=== PATIENT | male | born 1995 | race Caucasian/White ===

== ENCOUNTER → 2018-11-18 09:55 | Outpatient (CLI) | payer MEDICAID ==
[2015-07-10 13:31] VITALS: BMI 28.3
[~2018-11-18 09:55] MED LIST: COLACE100 MG PO; LAMICTAL150 MG PO; SYNTHROID25 MCG PO
== END | disposition home or self-care (01) ==
LOC: D.MRI 09:55
DX: M25.512 Pain in left shoulder (principal)

== ENCOUNTER → 2018-12-10 08:21 | Outpatient (CLI) | payer MEDICAID ==
[2015-07-10 13:31] VITALS: BMI 28.3
[~2018-12-10 08:21] MED LIST changes: +KEPPRA1000 MG PO
== END | disposition home or self-care (01) ==
LOC: D.CT 08:21
DX: S42.292A Other displaced fracture of upper end of left humerus, initial encounter for closed fracture (principal); X58.XXXA Exposure to other specified factors, initial encounter

== ENCOUNTER 2018-12-26 20:53 | Emergency (ER) | payer MEDICAID ==
[~2018-12-26] VITALS: Ht 190.5 cm; Wt 100.0 kg
[~2018-12-26 20:53] MED LIST changes: -KEPPRA1000 MG PO
[2018-12-26 21:05] VITALS: Ht 190.5 cm; Wt 100.0 kg
[2018-12-26] MEDS ORDERED: KEPPRA1000 MG PO (21:06)
[2018-12-26 23:42] LABS: HEMATOCRIT 48.6 % (42.0-54.0); HEMOGLOBIN 17.4 g/dL (13.5-17.5); LYMPHOCYTES 32.7 % (15-50); MCH 31.1 pg (26.0-34.0); MCHC 35.8 g/dL (31.0-37.0); MCV 86.9 fL (80.0-100.0); MEAN PLATELET VOLUME 10.4 fL (7.4-10.4); NEUTROPHILS 62.7 % (40-80); RBC 5.59 10x6/uL (4.20-6.10); RDW 12.6 % (11.5-14.5); WBC 8.9 10x3/uL (4.8-10.8)
[2018-12-26 23:43] LABS: PLATELET COUNT 158 10x3/uL (130-400)
[2018-12-27 00:03] LABS: ALBUMIN 3.8 g/dL (3.4-5.0); ALKALINE PHOSPHATASE 152 U/L (46-116); ALT (SGPT) 20 U/L (10-68); BILIRUBIN - TOTAL 0.36 mg/dL (0.2-1.3); CALC OSMOLALITY 277 mosm/kg (275-300); CALCIUM 8.7 mg/dL (8.5-10.1); CARBON DIOXIDE 27.1 mmol/L (21.0-32.0); CHLORIDE - SERUM 104 mmol/L (98-107); CREATININE - SERUM 0.9 mg/dL (0.6-1.3); GLUCOSE 100 mg/dL (74-106); POTASSIUM - SERUM 3.9 mmol/L (3.5-5.1); PROTEIN - SERUM 7.3 g/dL (6.4-8.2); SODIUM 140 mmol/L (136-145); UREA NITROGEN 11 mg/dL (7-18); eGFR NON AFRICAN AMERICAN > 90 mL/min (90-120)
[2018-12-27 03:45] VITALS: BP 114/60
== END 2018-12-27 03:08 | disposition home or self-care (01) ==
LOC: D.ER 20:53
PROVIDERS: Family Medicine
DX: S43.005A Unspecified dislocation of left shoulder joint, initial encounter (principal); X58.XXXA Exposure to other specified factors, initial encounter; Y93.89 Activity, other specified; Y92.019 Unspecified place in single-family (private) house as the place of occurrence of the external cause; F17.200 Nicotine dependence, unspecified, uncomplicated

== ENCOUNTER 2019-03-12 19:42 | Emergency (ER) | payer MEDICAID ==
[~2019-03-12] VITALS: Ht 190.5 cm; Wt 102.3 kg
[~2019-03-12 19:42] MED LIST changes: +KEPPRA1000 MG PO
[2019-03-12 19:47] VITALS: Ht 190.5 cm; Wt 102.3 kg
[2019-03-12 21:27] LABS: BASOPHILS 0.3 % (0-2); EOSINOPHILS 1.7 % (0-7); HEMATOCRIT 42.3 % (42.0-54.0); IMMATURE GRANULOCYTES 0.3 % (0-5); LYMPHOCYTES 37.4 % (15-50); MCH 31.1 pg (26.0-34.0); MCHC 35.5 g/dL (31.0-37.0); MCV 87.6 fL (80.0-100.0); MEAN PLATELET VOLUME 11.1 fL (7.4-10.4); MONOCYTES 8.4 % (2-11); NEUTROPHILS 51.9 % (40-80); PLATELET COUNT 142 10x3/uL (130-400); RBC 4.83 10x6/uL (4.20-6.10); RDW 12.9 % (11.5-14.5); WBC 7.2 10x3/uL (4.8-10.8)
[2019-03-12 21:50] LABS: ALBUMIN 3.7 g/dL (3.4-5.0); ALKALINE PHOSPHATASE 145 U/L (46-116); ALT (SGPT) 15 U/L (10-68); BILIRUBIN - TOTAL 0.29 mg/dL (0.2-1.3); CALC OSMOLALITY 278 mosm/kg (275-300); CARBON DIOXIDE 21.5 mmol/L (21.0-32.0); CHLORIDE - SERUM 105 mmol/L (98-107); GLUCOSE 112 mg/dL (74-106); POTASSIUM - SERUM 3.9 mmol/L (3.5-5.1); PROTEIN - SERUM 7.1 g/dL (6.4-8.2); SODIUM 138 mmol/L (136-145); UREA NITROGEN 19 mg/dL (7-18); eGFR NON AFRICAN AMERICAN > 90 mL/min (90-120)
[2019-03-12] MEDS ORDERED: HYDROCODON-ACE1 EAC2 PO (22:19)
[2019-03-12 22:45] VITALS: BP 114/66
== END 2019-03-12 22:45 | disposition home or self-care (01) ==
LOC: D.ER 19:42
PROVIDERS: Family Medicine
DX: S43.005A Unspecified dislocation of left shoulder joint, initial encounter (principal); X58.XXXA Exposure to other specified factors, initial encounter; Y93.89 Activity, other specified; Y92.89 Other specified places as the place of occurrence of the external cause

== ENCOUNTER 2019-03-24 05:25 | Day surgery (SDC) | payer MEDICAID ==
[~2019-03-24 05:25] MED LIST changes: +HYDROCODON-ACE1 EAC2 PO; -LAMICTAL150 MG PO; +LAMICTAL200 M1 PO
[2019-03-24 06:30] VITALS: BP 118/65; BMI 29.7
[2019-03-24] MEDS ORDERED: DILAUDID4 MG PO (10:44)
--- NOTE | 2019-03-24 11:50 | NUR ---
CALL PLACED TO DR PIÑA REGARDING PATIENT'S COMPLAINT OF PAIN RATED AT 8 ON 0-10 SCALE TO LEFT SHOULDER. UGCCI KEANE CHARGE GANG WEIGHER COMES TO PATIENT'S ROOM TO ASSESS PATIENT'S PAIN
--- NOTE | 2019-03-24 12:40 | NUR ---
PATIENT STATES HE WISHES TO GO HOME, STATES PAIN HAS IMPROVED AND PAIN IS BEARABLE. PIV DC'D WITH TIP INTACT. DISCHARGE INSTRUCTIONS REVIEWED WITH PATIENT AND FAMILY. 1250 DISCHARGED HOME VIA WHEELCHAIR TO PRIVATE VEHICLE
[2019-03-25] MEDS ORDERED: PERCOCET 10-321 EAC1 PO (10:27)
--- NOTE | 2019-03-28 07:51 | OP ---
PATIENT NAME: CARMELITA BURGOS MEDICAL RECORD: [id number] :97 LOCATION:[facility] ADMISSION DATE: SURGEON: LILI PACE MD DATE OF OPERATION: 03/24/2019 PREOPERATIVE DIAGNOSES: 1. 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 2. 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 POSTOPERATIVE DIAGNOSES: 1. 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 2. 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 PROCEDURES: 1. Glenohumeral transplant. 2. Fresh allograft reconstruction of the humeral head approximately 30 cm in volume. 3. Fresh osteochondral allograft to the glenoid approximately 20 cm in volume. SURGEON: Lili Pace MD ANESTHESIA: General. INTRAOPERATIVE COMPLICATIONS: None. INDICATIONS: Carmelita Burgos is a 24-year-old gentleman who had previous shoulder reconstruction arthroscopically. Unfortunately, this failed as the patient had redeveloped his seizures. He is now 18 months seizure free. Preoperative CT scan showed that approximately the posterior half of the humeral head was void as well as the anterior 1/3 plus of the glenoid. The patient has failed arthroscopically and with the bony deficits noted. He was placed on the transplant list for fresh human transplant. Transplant became available. The patient was called in and the above surgery was performed. This was done completely open. OPERATIVE SUMMARY IN DETAIL: After obtaining the appropriate preoperative orthopedic consents as well as anesthetic consultation, evaluation and clearance, the patient was placed on the operating table in supine position. After general laryngeal mask airway was administered, the patient was placed in beach chair position. All pressure points were well padded. He was held firmly to the operating table using the vacuum pack suction system. The patient's left upper extremity and shoulder were then prepped and draped in routine sterile fashion. The arm was held in the Trimano arm holding device. Prior to incision, the patient's blood was drawn for fresh platelet rich plasma to be used into the case. The grafts were then opened to the back field. These are fresh human tissue grafts not frozen. Deltopectoral incision was created, taken down the level of the cephalic vein was identified and protected throughout the case. Deltoid was retracted over the humeral head using the brown retractor. Conjoined tendon was then identified. Clavipectoral fascia was incised. Conjoined tendon was gently retracted anteriorly. The subscapularis was removed in a peel-type fashion and retracted. At this point, the large glenoid deficit was noted. The humeral head was then dislocated into the incision. Intraoperative photos were taken of the large posterior deficit. The [facility] OPERATIVE REPORT [id number] CARMELITA BURGOS GINETTE lesion was then treated with cleanup cuts using a safety saw. The cleanup cuts were then measured in 3 dimension. The femoral head taken from the donor was then placed into the Arthrex graft base. It was held firmly while the appropriate measurements were drawn. Cuts were made to replace the posterior aspect of the humeral head done with a freehand technique. After the humeral head was cut, it was put into place. Several further small cuts were made for fine manipulation. This was then put into place and thought to be adequate. It was then soaked in PRP for approximately 10 minutes, bone graft was taken from the residual graft of the femoral head also soaked in PRP, packed into the open deficit and then the bone graft was then held in place and screwed in place using Acutrak compression screws that were placed subchondrally. This resulted in excellent spiritism of the humeral head volume. Having completed this, the humeral head was relocated and then retracted using the Fukuda retractor for good visualization of the anterior aspect of the glenoid. The anterior aspect of the glenoid was then cleared of all soft tissue. Previously placed suture anchors were also removed and then the anterior aspect of the glenoid as well as glenoid neck was prepared for graft. The tibial allograft was then placed into the Arthrex manipulation base and held firmly. Again, the planned cuts were drawn out and cut freehand. Having completed the cut for the anterior glenoid fresh allograft, it was put into place. Further small cuts were made for precision fit. The graft was then held into place and the K-wires for the cannulated Acutrak screws, 2.5 were then placed. Once it was felt that it was in the appropriate place screws were put into place. A small cut was made to trim up the bottom of the allograft of the glenoid. Again, intraoperative photos were taken. The wound was copiously irrigated this in multiple points. At this point, I did not feel like I needed to do a capsular advancement given to the fact that the entire glenoid was restored as well as the entire humeral head was restored. Subscapularis and capsule were then reapproximated back to the lesser tuberosity. A biceps tenotomy had been performed. This was thusly tenodesed into the closure. Please note that both grafts were soaked copiously in PRP. Upon closing the deltopectoral interval, the residual PRP was placed into the entire incision. The incision was closed finally with #1 Vicryl, 2-0 Vicryl, and skin lui. Sterile dressings were applied. The patient was awakened, taken to recovery room in stable condition. All final needle and sponge counts were correct. TRANSINT:[id number] Voice Confirmation ID: [id number] DOCUMENT ID: [id number] SANJEEV ZARATE, LILI DIA at 0751 CC: [id number] DICTATION DATE: 03/25/19 1309 [employer]: 03/25/192053 [facility] 03/24/19 [id number] [place] [address]
== END 2019-03-24 12:50 | disposition home or self-care (01) ==
LOC: D.OPS 05:25 → D.PAN 12:45 → D.OPS 12:45
PROVIDERS: ATTEND Orthopaedic Surgery
DX: M25.312 Other instability, left shoulder (principal); S43.005A Unspecified dislocation of left shoulder joint, initial encounter; X58.XXXA Exposure to other specified factors, initial encounter; Z01.812 Encounter for preprocedural laboratory examination

== ENCOUNTER 2019-03-25 09:22 | Emergency (ER) | payer MEDICAID ==
[~2019-03-25] VITALS: Ht 185.4 cm; Wt 102.3 kg
[~2019-03-25 09:22] MED LIST changes: +DILAUDID4 MG PO
[2019-03-25 09:32] VITALS: Ht 185.4 cm; Wt 102.3 kg
[2019-03-25] MEDS ORDERED: PERCOCET 10-321 EAC1 PO (10:27)
[2019-03-25 11:27] VITALS: BP 141/86
== END 2019-03-25 11:28 | disposition home or self-care (01) ==
LOC: D.ER 09:22
DX: G89.18 Other acute postprocedural pain (principal)

== ENCOUNTER → 2019-04-28 11:57 | Outpatient (CLI) | payer MEDICAID ==
[2019-03-25 09:32] VITALS: BMI 29.7
[~2019-04-28 11:57] MED LIST changes: +PERCOCET 10-321 EAC1 PO
== END | disposition home or self-care (01) ==
LOC: D.MRI 11:57
PROVIDERS: ATTEND Clinical Nurse Specialist Family Health
DX: M25.511 Pain in right shoulder (principal)

== ENCOUNTER → 2019-07-22 12:13 | Outpatient (CLI) | payer MEDICAID ==
[2019-03-25 09:32] VITALS: BMI 29.7
== END | disposition home or self-care (01) ==
LOC: D.MRI 12:13
PROVIDERS: ATTEND Clinical Nurse Specialist Family Health
DX: M25.512 Pain in left shoulder (principal)

== ENCOUNTER 2019-08-22 07:45 | Day surgery (SDC) | payer MEDICAID ==
[~2019-08-22] VITALS: Ht 185.4 cm; Wt 99.8 kg
[2019-08-22 08:04] VITALS: BP 123/74; Ht 185.4 cm; Wt 99.8 kg
[2019-08-22] MEDS ORDERED: PERCOCET 10-321 EAC1 PO (13:03)
--- NOTE | 2019-08-22 13:56 | NUR ---
1355 MEETS ANESTHESIA DISCHARGE CRITERIA
--- NOTE | 2019-08-22 15:08 | NUR ---
PT DC INSTRUCTIONS REMOVED AT THIS TIME, PT VERBALIZES UNDERSTANDING. PT IV REMOVED AT THIS TIME, INTACT, NO REDNESS OR SWELLING NOTED AT THIS TIME.
--- NOTE | 2019-08-26 14:29 | OP ---
PATIENT NAME: CARMELITA BURGOS MEDICAL RECORD: [id number] :97 LOCATION:[facility] ADMISSION DATE: SURGEON: LILI PACE MD DATE OF OPERATION: 08/22/2019 PREOPERATIVE DIAGNOSES: 1. Subscapularis rupture. 2. Chronic seizure disorder with chronic shoulder instability. POSTOPERATIVE DIAGNOSES: 1. Subscapularis rupture. 2. Chronic seizure disorder with chronic shoulder instability. PROCEDURE: 1. Left pectoralis transfer. 2. Left shoulder arthroscopy -- diagnostic. SURGEON: Lili Pace MD HOTBED OPERATOR: Bridger Saleh APN INTRAOPERATIVE COMPLICATIONS: Essentially none. SUMMARY OF PATHOLOGIC FINDINGS: The patient's subscapularis had all but become nonidentifiable and as the subscapularis could not be mobilized safely, the decision was made intraoperatively to proceed with a pectoralis transfer. INDICATIONS: This is a 24-year-old male who has had a long history of shoulder instability secondary to seizure disorder. Prior to his prior procedure done by or, he had been 18 months without seizures. He had a partial humeral head transplant and a partial glenoid transplant, which was stable and then for some reason, he got denied his seizure medications by insurance and thusly had 3 more seizures and as a part of one of his previous seizures, he did not have the left-sided dislocation; however, he did rupture his subscapularis. The above planned surgery was undertaken; however, the decision was made intraoperatively to proceed with a pec transfer. OPERATIVE SUMMARY IN DETAIL: After obtaining the appropriate preoperative orthopedic surgery consent as well as anesthetic consultation, evaluation and clearance, the patient was brought to the operating room and placed on the operating table in a supine position. After adequate general laryngeal mask airway was administered, the patient was placed in beach chair position. All pressure points were well padded. He was held firmly to the operating room table using the vacuum pack suction system. Left upper extremity and shoulder were then prepped and draped in a routine sterile fashion. The arm was held in the [employer] arm holding device. At this point, after the appropriate timeout was taken and agreed upon by all, arthroscopy was established in the glenohumeral joint from a posterior portal. Diagnostic arthroscopy was undertaken to evaluate the patient's rotator cuff as well as the patient's previously placed allograft transplant. The bone seemed to be well healed. The rotator cuff seemed to be well healed about the transplant portion. The portion of rotator cuff that was pathologic was the anterior subscapularis. Fortunately, the glenoid transplant also did appear to be in excellent position. Intraoperative photographs were taken and later placed in the chart as a permanent part of the patient's record. At this point, the decision was made to OPERATIVE REPORT [id number] AUBREYCARMELITA GINETTE proceed with an open subscapularis repair. Deltopectoral incision was taken and this was a substantial amount of scar tissue. The patient also had a substantial amount of deltoid adhered to the shoulder capsule. After long dissection, adequate exposure of the anterior shoulder was performed and then attempts were made to identify the subscapularis. The subscapularis was very much adherent to the scapula as well as the anterior portions of the glenoid itself. Attempts at mobilization were only not successful or thought to be unsafe at this point. The decision was then made at this point, to proceed with the pectoralis transfer. Pectoralis was mobilized from its humeral insertion point after stay sutures had been placed prior. After mobilization of the pectoralis, the pectoralis was then moved up to just below the lesser tuberosity as further mobilization was not possible; however, the gap between the supraspinatus tendon and the pectoralis transfer was easily closable. The pectoralis was held to the humeral head with a total of 3 [place] that required a punch tap because of the hardness of this young person's bone and the diaphyseal area. When the pectoralis transfer had been completed, it was sewn to the lower edge of the supraspinatus gently, not over tightening. The shoulder appeared to have a normal position and external rotation to beyond neutral was possible without undue stress on the pectoralis. At this point, the wound was copiously irrigated and closed by Arian Saleh with #1 Vicryl, 2-0 Vicryl and skin lui. Sterile dressings were applied. The patient was then placed in a shoulder immobilizer and internal rotation. He was awakened, taken to recovery in stable condition. All final needle and sponge counts were correct. TRANSINT:[id number] Voice Confirmation ID: [id number] DOCUMENT ID: [id number] SANJEEV ZARATE, LILI DIA at 1423 CC: [id number] DICTATION DATE: 08/26/19 1024 [employer]: 08/26/19 1058 [facility] [place] 08/22/19 [facility] [address] [place] [address]
== END 2019-08-22 15:30 | disposition home or self-care (01) ==
LOC: D.OPS 07:45 → D.PAN 09:40 → D.OPS 09:45
PROVIDERS: ATTEND Orthopaedic Surgery
DX: S46.812A Strain of other muscles, fascia and tendons at shoulder and upper arm level, left arm, initial encounter (principal); X58.XXXA Exposure to other specified factors, initial encounter; M25.312 Other instability, left shoulder; G40.909 Epilepsy, unspecified, not intractable, without status epilepticus

== ENCOUNTER → 2020-01-09 14:13 | Outpatient (CLI) | payer MEDICAID ==
[2019-08-22 08:04] VITALS: BMI 29.0
== END | disposition home or self-care (01) ==
LOC: D.CT 14:13
PROVIDERS: ATTEND Orthopaedic Surgery
DX: M25.511 Pain in right shoulder (principal)